=== PATIENT | female | born 1950 | race Caucasian/White ===

== ENCOUNTER 2017-04-06 11:09 | Inpatient (IN) | payer OTHER ==
[~2017-04-06] VITALS: Ht 157.5 cm; Wt 87.6 kg
[~2017-04-06 11:09] MED LIST: ARICEPT10 MG PO; ASPIR 8181 M1 PO; BACTRIM,SEPT1 TABLET PO; BENZTROPINE ME0.5 MG PO; CEFTIN500 MG PO; CLOPIDOGREL75 MG PO; COGENTIN0.5 MG PO; CRESTOR10 MG PO; Cozaar PO; DEPAKOTE ER (E250 MG PO; DEPAKOTE ER (E500 MG PO; DEPAKOTE ER250 MG PO; DEPAKOTE250 MG PO; DETROL LA4 MG PO; DITROPAN XL15 MG PO; DITROPAN5 MG PO; DIVALPROEX SOD250 MG PO; DIVALPROEX SOD500 MG PO; EFFEXOR XR75 MG PO; EFFEXOR75 MG PO; FENOFIBRIC ACI135 MG PO; KEFLEX250 MG PO; LEVAQUIN250 MG PO; LEVAQUIN750 MG PO; LISINOPRIL20 MG PO; LOW DOSE ASPIRI81 M1 PO; OLANZAPINE10 MG PO; OLANZAPINE15 MG PO; OXYBUTYNIN CHLO15 MG PO; OXYBUTYNIN CHLOR5 MG PO; PLAVIX75 MG PO; PREDNISONE20 MG PO; TRILIPIX135 MG PO; VENLAFAXINE HCL75 M3 PO; VENTOLIN HFA18 GM IH; VICODIN,LORT1 TABLET PO; ZESTRIL20 MG PO; ZYPREXA10 MG PO
[2017-04-06 12:08] LABS: BASOPHIL COUNT 0.1 K/uL (0-0.1); EOSINOPHIL (%) 0.1 % (0-5); HEMATOCRIT 46.1 % (36.0-46.0); IMMATURE GRANULOCYTE (%) 0.8 % (0.0-0.7); IMMATURE GRANULOCYTE COUNT 0.1 K/uL; INSTRUMENT ABS NEUTROPHIL CT 4.7 K/uL; LYMPHOCYTE COUNT 1.9 K/uL (1.0-2.8); MCHC 31.5 G/DL (30.0-36.0); MCV 95.2 FL (83-99); MEAN PLAT.VOLUME 10.4 uM^3 (9.5-12.4); MONOCYTE (%) 11.2 % (3-12); MONOCYTE COUNT 0.8 K/uL (0-0.8); NEUTROPHIL (%) 62.1 % (45-76); NEUTROPHIL COUNT 4.7 K/uL (1.8-6.4); PLATELET COUNT 198 K/uL (156-360); RBC DIS.WIDTH-CV 14.8 % (11.8-14.6); RBC DIS.WIDTH-SD 51.8 % (39-53); RED BLOOD COUNT 4.84 M/uL (3.80-5.20); WHITE BLOOD COUNT 7.5 K/uL (4.1-10.2)
[2017-04-06 12:18] LABS: CHLORIDE 103 mEq/L (99-109); POTASSIUM 4.2 mEq/L (3.7-5.4); SODIUM 143 mEq/L (136-147)
[2017-04-06 12:21] LABS: GLUCOSE 165 mg/dL (70-99)
[2017-04-06 12:22] LABS: ADD MIUA? YES; BILIRUBIN NEGATIVE; BLOOD SMALL; COLOR YELLOW ((YELLOW)); GLUCOSE (STRIP) NEGATIVE; KETONES NEGATIVE; LEUKOCYTES NEGATIVE; NITRITE NEGATIVE; PROTEIN (STRIP) 30; SPECIFIC GRAVITY 1.011 (1.000-1.030); UROBILINOGEN 0.2 MG/DL (0.2-1.0)
[2017-04-06 12:22] LABS: ANION GAP 14 MEQ/L (2-14)
[2017-04-06 12:23] LABS: TOTAL BILIRUBIN 0.6 mg/dL (0.0-1.0)
[2017-04-06 12:24] LABS: ALKALINE PHOSPHATASE 42 IU/L (3-129); GFR ESTIMATE (CALCULATED) > 59 mL/min/
[2017-04-06 12:26] LABS: UREA NITROGEN (BUN) 16 mg/dL (9-23)
[2017-04-06 12:31] LABS: BACTERIA 1+ /HPF; EPITHELIAL CELLS 1+ /HPF; GRANULAR CASTS TNTC /LPF; MUCUS 4+ /LPF; RED BLOOD CELLS 0-5 /HPF (0-5); UCUL ADDED? YES
[2017-04-06 16:00] VITALS: BP 160/100
[2017-04-06 20:00] VITALS: BP 112/53
[2017-04-06 23:44] VITALS: BP 137/62
[2017-04-07 03:56] VITALS: BP 114/67
[2017-04-07 07:06] LABS: BASOPHIL COUNT 0.1 K/uL (0-0.1); EOSINOPHIL (%) 0.4 % (0-5); HEMATOCRIT 36.2 % (36.0-46.0); IMMATURE GRANULOCYTE (%) 1.1 % (0.0-0.7); IMMATURE GRANULOCYTE COUNT 0.1 K/uL; INSTRUMENT ABS NEUTROPHIL CT 2.9 K/uL; LYMPHOCYTE COUNT 3.1 K/uL (1.0-2.8); MCH 29.9 PG (29.0-34.0); MCHC 31.8 G/DL (30.0-36.0); MONOCYTE (%) 17.2 % (3-12); MONOCYTE COUNT 1.3 K/uL (0-0.8); NEUTROPHIL (%) 38.9 % (45-76); NEUTROPHIL COUNT 2.9 K/uL (1.8-6.4); PLATELET COUNT 180 K/uL (156-360); RBC DIS.WIDTH-CV 14.6 % (11.8-14.6); WHITE BLOOD COUNT 7.5 K/uL (4.1-10.2)
[2017-04-07 07:24] LABS: RED BLOOD COUNT 3.85 M/uL (3.80-5.20)
[2017-04-07 07:27] LABS: ANION GAP 10 MEQ/L (2-14); CHLORIDE 108 MEQ/L (99-109); GFR ESTIMATE (CALCULATED) > 59 mL/min/; HDL CHOLESTEROL 30 MG/DL (Desirable>=50); LDL CHOLESTEROL 98 mg/dL (Desirable<100); NON-HDL CHOLESTEROL 138 mg/dL (Desirable<160); POTASSIUM 3.8 MEQ/L (3.7-5.4); SAMPLE HEMOLYSIS CHECK 0; SAMPLE ICTERIC CHECK 0; SAMPLE LIPEMIA CHECK 0; SODIUM 143 MEQ/L (136-147); TOTAL CHOLESTEROL 168 mg/dL (Desirable<200); TRIGLYCERIDES 198 MG/DL (Normal: <150); UREA NITROGEN (BUN) 13 mg/dL (9-23)
[2017-04-07 07:29] LABS: GLUCOSE 105 mg/dL (70-99)
[2017-04-07 08:23] VITALS: BP 170/82
[2017-04-07] MEDS ORDERED: CEPHALEXIN250 MG PO (13:04)
[2017-04-07] MEDS ORDERED: ASPIR 8181 M1 PO (13:23)
[2017-04-07 15:45] VITALS: BP 110/56
[2017-04-08 00:14] VITALS: BP 124/56
[2017-04-08 06:23] LABS: BASOPHIL COUNT 0.1 K/uL (0-0.1); EOSINOPHIL (%) 0.5 % (0-5); HEMATOCRIT 35.8 % (36.0-46.0); IMMATURE GRANULOCYTE (%) 1.4 % (0.0-0.7); IMMATURE GRANULOCYTE COUNT 0.1 K/uL; INSTRUMENT ABS NEUTROPHIL CT 2.6 K/uL; LYMPHOCYTE COUNT 2.4 K/uL (1.0-2.8); MCH 30.5 PG (29.0-34.0); MCHC 31.8 G/DL (30.0-36.0); MCV 95.7 FL (83-99); MEAN PLAT.VOLUME 10.4 uM^3 (9.5-12.4); MONOCYTE (%) 19.3 % (3-12); MONOCYTE COUNT 1.2 K/uL (0-0.8); NEUTROPHIL (%) 40.3 % (45-76); NEUTROPHIL COUNT 2.6 K/uL (1.8-6.4); PLATELET COUNT 169 K/uL (156-360); RBC DIS.WIDTH-CV 14.7 % (11.8-14.6); RBC DIS.WIDTH-SD 51.8 % (39-53); RED BLOOD COUNT 3.74 M/uL (3.80-5.20); WHITE BLOOD COUNT 6.4 K/uL (4.1-10.2)
[2017-04-08 06:45] LABS: ANION GAP 11 MEQ/L (2-14); CHLORIDE 110 MEQ/L (99-109); GFR ESTIMATE (CALCULATED) > 59 mL/min/; GLUCOSE 130 mg/dL (70-99); SAMPLE HEMOLYSIS CHECK 0; SAMPLE ICTERIC CHECK 0; SAMPLE LIPEMIA CHECK 0; SODIUM 146 MEQ/L (136-147); UREA NITROGEN (BUN) 13 mg/dL (9-23)
[2017-04-08 08:11] VITALS: BP 116/60
[2017-04-08 08:43] LABS: Estimated Average Glucose 123 mg/dL (70-123); HEMOGLOBIN A1c (GLYCOHEMOGLOB) 5.9 % HGB (Below 5.7)
[2017-04-08 16:25] VITALS: BP 117/60
[2017-04-08 23:59] VITALS: BP 112/66
[2017-04-09 07:32] VITALS: BP 124/75; BP 154/75
[2017-04-09] MEDS ORDERED: CEFTRIAXONE1 G1 IM (13:27)
== END 2017-04-09 17:28 | DRG 690 ==
LOC: EME 11:09 → EDOF 14:00 → 2EAST 14:00 → ENRESERV 14:37 → 2EAST 15:49
PROVIDERS: Emergency Medicine; Family Medicine
DX: N39.0 Urinary tract infection, site not specified (principal); F03.91 Unspecified dementia, unspecified severity, with behavioral disturbance; I69.359 Hemiplegia and hemiparesis following cerebral infarction affecting unspecified side; R44.3 Hallucinations, unspecified; F05 Delirium due to known physiological condition; Z66 Do not resuscitate; E11.9 Type 2 diabetes mellitus without complications; E78.1 Pure hyperglyceridemia; F31.9 Bipolar disorder, unspecified; G20 Parkinson's disease; I10 Essential (primary) hypertension; J43.9 Emphysema, unspecified; R15.9 Full incontinence of feces; N39.41 Urge incontinence; E66.9 Obesity, unspecified; B96.4 Proteus (mirabilis) (morganii) as the cause of diseases classified elsewhere; Z74.01 Bed confinement status; Z79.4 Long term (current) use of insulin; Z87.440 Personal history of urinary (tract) infections; Z87.891 Personal history of nicotine dependence; Z90.710 Acquired absence of both cervix and uterus; Z79.82 Long term (current) use of aspirin
CPT/HCPCS: 71010; 80048; 80053; 80061; 80164; 81003; 83036; 83605; 85025; 87040; 87077; 87086; 87186; 99281; 99285; J0696; J2543; J3480

== ENCOUNTER 2017-08-22 15:50 | Emergency (ER) | payer OTHER ==
[~2017-08-22] VITALS: Ht 167.6 cm; Wt 84.3 kg
[~2017-08-22 15:50] MED LIST changes: +CEFTRIAXONE1 G1 IM; +CEPHALEXIN250 MG PO
[2017-08-22 17:31] LABS: HEMATOCRIT 37.6 % (36.0-46.0); HEMOGLOBIN 12.4 G/DL (11.9-15.5); MCH 32.3 PG (29.0-34.0); MCV 97.9 FL (83-99); NRBC (%) 0.2 /100 WBC (0-0); PLATELET COUNT 213 K/uL (156-360); RBC DIS.WIDTH-CV 13.2 % (11.8-14.6); RBC DIS.WIDTH-SD 47.8 % (39-53); RED BLOOD COUNT 3.84 M/uL (3.80-5.20)
[2017-08-22 17:39] LABS: ALBUMIN 3.6 g/dL (3.2-4.8); CHLORIDE 107 mEq/L (99-109); POTASSIUM 4.6 mEq/L (3.7-5.4); SODIUM 144 mEq/L (136-147)
[2017-08-22 17:41] LABS: GLUCOSE 163 mg/dL (70-99); TOTAL PROTEIN 6.4 g/dL (6.4-8.3)
[2017-08-22 17:43] LABS: TOTAL BILIRUBIN 0.4 mg/dL (0.0-1.0)
[2017-08-22 17:45] LABS: ALKALINE PHOSPHATASE 78 IU/L (3-129); CREATININE 0.7 mg/dL (0.6-1.3); GFR ESTIMATE (CALCULATED) > 59 mL/min/
[2017-08-22 17:46] LABS: UREA NITROGEN (BUN) 16 mg/dL (9-23)
[2017-08-22 17:47] LABS: AST (GOT) 22 IU/L (2-34)
[2017-08-22 17:48] LABS: ALT (GPT) 15 IU/L (3-49)
[2017-08-22 19:24] LABS: APPEARANCE SL.HAZY ((CLEAR)); BILIRUBIN NEGATIVE; BLOOD NEGATIVE; COLOR AMBER ((YELLOW)); GLUCOSE (STRIP) NEGATIVE; KETONES 5; LEUKOCYTES SMALL; NITRITE NEGATIVE; PROTEIN (STRIP) 100; SPECIFIC GRAVITY 1.028 (1.000-1.030)
[2017-08-22 19:31] LABS: BACTERIA 1+ /HPF; EPITHELIAL CELLS 1+ /HPF; MUCUS RARE /LPF; RED BLOOD CELLS 0-5 /HPF (0-5); UCUL ADDED? YES
[2017-08-22 22:46] VITALS: BP 138/82
== END 2017-08-22 22:48 ==
LOC: EME 15:50
PROVIDERS: Emergency Medicine
DX: S00.03XA Contusion of scalp, initial encounter (principal); M54.2 Cervicalgia; W01.198A Fall on same level from slipping, tripping and stumbling with subsequent striking against other object, initial encounter; Y93.01 Activity, walking, marching and hiking; I10 Essential (primary) hypertension; F32.9 Major depressive disorder, single episode, unspecified; E78.5 Hyperlipidemia, unspecified; F03.90 Unspecified dementia, unspecified severity, without behavioral disturbance, psychotic disturbance, mood disturbance, and anxiety; G20 Parkinson's disease; Z86.718 Personal history of other venous thrombosis and embolism; I69.351 Hemiplegia and hemiparesis following cerebral infarction affecting right dominant side; Z79.82 Long term (current) use of aspirin; Z87.891 Personal history of nicotine dependence
CPT/HCPCS: 70450; 71045; 72125; 80053; 81003; 82948; 85027; 87086; 99281; 99285; J3010

== ENCOUNTER 2017-10-30 23:02 | Emergency (ER) | payer OTHER ==
[~2017-10-30] VITALS: Ht 170.2 cm; Wt 84.0 kg
[2017-10-31 02:04] VITALS: BP 115/64
== END 2017-10-31 02:10 ==
LOC: EME → EDBD 23:02 → EME 10-31 02:10
DX: S00.93XA Contusion of unspecified part of head, initial encounter (principal); S60.222A Contusion of left hand, initial encounter; W06.XXXA Fall from bed, initial encounter; I10 Essential (primary) hypertension; E78.5 Hyperlipidemia, unspecified; F03.90 Unspecified dementia, unspecified severity, without behavioral disturbance, psychotic disturbance, mood disturbance, and anxiety; G20 Parkinson's disease; J43.9 Emphysema, unspecified; F31.9 Bipolar disorder, unspecified; F32.9 Major depressive disorder, single episode, unspecified; Z87.891 Personal history of nicotine dependence; Z86.73 Personal history of transient ischemic attack (TIA), and cerebral infarction without residual deficits; Z86.718 Personal history of other venous thrombosis and embolism
CPT/HCPCS: 70450; 73130; 99281; 99283